=== PATIENT | male | born 1985 ===

== ENCOUNTER 2020-02-05 18:07 | Emergency (ER) | payer OTHER ==
[2020-02-05] MEDS ORDERED: Amoxicillin/Clavulanate K 500-125 MG Tab PO ONE ×2 (18:08→20:05)
[2020-02-05] MEDS ORDERED: Sodium Chloride 0.9% 1,000 ML IV ONE (18:08)
[2020-02-05] MEDS ORDERED: HYDROmorphone 0.5 MG/0.5 ML Syringe IVPUSH ONE (18:08)
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
[2020-02-05 18:34] LABS: ANION GAP 37.8 mEq/L (7-13); CHLORIDE,CL 97 mmol/L (98-107); SODIUM,NA 140 mmol/L (136-145)
[2020-02-05] MEDS ORDERED: Bacitracin Oint 1 GM U/D Packet TOP ONE (19:19)
[2020-02-05] MEDS ORDERED: Lidocaine 1% 30 ML SDV INJECT ONE (19:19)
[2020-02-05] MEDS ORDERED: Amoxicillin/Clavulanate K 500-125 MG Tab ONE (20:11)
== END 2020-02-05 20:15 | disposition home or self-care (01) ==
LOC: DL.ED 18:07
DX: S82.52XA Displaced fracture of medial malleolus of left tibia, initial encounter for closed fracture (principal); S01.432A Puncture wound without foreign body of left cheek and temporomandibular area, initial encounter; S80.02XA Contusion of left knee, initial encounter; S80.01XA Contusion of right knee, initial encounter; S20.219A Contusion of unspecified front wall of thorax, initial encounter; W50.3XXA Accidental bite by another person, initial encounter
CPT/HCPCS: 12013; 27762; 36415; 73590; 73600; 80053; 80307; 85025; 96361; 96374; 99283; A9270; J1170; J2001; J7030; 73610-LT